=== PATIENT | male | born 1955 | race Caucasian/White ===

== ENCOUNTER → 2017-05-22 | Outpatient (CLI) | payer MEDICARE ==
--- NOTE | 2017-05-23 06:03 | US ---
EXAM DESCRIPTION: Abdomen,Complete CLINICAL HISTORY: HEP C COMPARISON: None TECHNIQUE: Real-time sonographic images of the abdomen are obtained FINDINGS: Pancreas is unremarkable. The right lobe of the liver measures 18.5cm. The liver is diffusely increased in echotexture compatible with hepatic steatosis. No focal hepatic mass is seen. The gallbladder is normally distended and free of abnormal internal echogenicities. No gallbladder wall thickening or pericholecystic fluid is seen. The common bile duct measures six mm in greatest diameter. The right kidney measures 10.9 cm. The left kidney measures 10.9 cm. Both kidneys show normal renal cortical echogenicity. No hydronephrosis is seen. The spleen measures 10.3 cm. Visualized IVC and abdominal aorta are within normal limits. IMPRESSION: Hepatic steatosis. Electronically signed by: Terell Hallman MD 05/23/2017 6:01 AM CDT
== END | disposition home or self-care (01) ==
LOC: US 08:46
PROVIDERS: ATTEND Nurse Practitioner Family
DX: K76.0 Fatty (change of) liver, not elsewhere classified (principal); G89.29 Other chronic pain

== ENCOUNTER → 2018-12-09 | Outpatient (CLI) | payer MEDICARE ==
--- NOTE | 2018-12-09 16:16 | US ---
EXAM DESCRIPTION: Abdomen,Complete: Ultrasound. CLINICAL HISTORY: CHRONIC LIVER DISEASE COMPARISON: None Available. TECHNIQUE: Transabdominal scannin-dimensional and Doppler modes. FINDINGS: Gallbladder: Normal echogenicity and size with no intraluminal stones or sludge. Wall thickness 1 mm. No surrounding fluid. Nontender with transducer pressure. Common bile duct: 5.4 mm normal caliber. Liver: 17.2 cm long axis. Normal echogenicity. Smooth capsule with no ascites. Normal caliber and flow in the portal vein. No intrahepatic biliary dilatation. Pancreas: Normal echogenicity of the included segments duct not seen.. Abdominal aorta: Proximal aorta obscured by intestinal gas. Normal caliber of the mid and distal aorta. IVC: visualized; normal caliber. Spleen normal echogenicity; long axis measurement is 10.2 cm. Right kidney: 10.8 cm long axis. Normal cortical thickness and echogenicity. No hydronephrosis. Left kidney: 10.8 cm long axis. Normal cortical thickness and echogenicity. No hydronephrosis. Proximal aorta obscured by intestinal gas. IMPRESSION: 1. Ultrasound of the abdomen is unremarkable. Liver upper normal limits in size but otherwise negative. 2. No gallstones or dilated ducts. No ascites. Electronically signed by: Mike Maciel MD 12/09/2018 4:13 PM CDT
== END ==
LOC: US 08:07
PROVIDERS: ATTEND Nurse Practitioner Family
DX: K76.9 Liver disease, unspecified (principal); R52 Pain, unspecified; Z86.19 Personal history of other infectious and parasitic diseases; Z86.010 Personal history of colon polyps

== ENCOUNTER 2020-09-15 10:01 | Observation (INO) | payer MEDICARE ==
[2020-09-15] MEDS ORDERED: SODIUM CHLORIDE 0.9% (FLUSH) 10 ML SYG IV PRN ×2 (10:14→14:46)
[2020-09-15] MEDS ORDERED: SODIUM CHLORIDE 0.9% 1000ML 1,000 ML IVS ONE (10:15)
--- NOTE | 2020-09-15 10:21 | ED.PDOC ---
History of Present Illness - General Time Seen by Provider: 09/15/20 10:04 Source: patient - History of Present Illness Initial Comments: 65-year-old PMH COPD who presents with chief complaint of shortness of breath and fever. Reports onset of illness a few days after [place] after being around many family members who have since tested positive for COVID-19. States symptoms have worsened in the past few days. Reports chief complaint of marked dyspnea at rest which worsens with minimal exertion. He reports frequent cough which is productive for colored sputum. He additionally reports fevers for the past couple of weeks with T-max 102 Fahrenheit at home. He also complains of urinary frequency but when he tries to urinate he is having issues and producing dark urine. Additionally reports new onset left-sided flank pain which has been coming and going. Also reports headaches, body aches, burning chest pains only with coughing, poor appetite. Denies abdominal pain, nausea/vomiting/diarrhea, leg swelling. He has not taken any medications at home for his symptoms. Patient reports prior smoking history but quit 25 years ago. He does admit to frequently smoking cannabis. Reports history of COPD but has not used his inhaler recently. Denies any known cardiac issues. PCP is John Jacome. Allergies/Adverse Reactions: Allergies NO KNOWN ALLERGY Allergy (Verified 09/15/20 10:34) Review of Systems - Review of Systems Review of Systems: 09/15/20 10:21 as per HPI All other Systems: Reviewed and Negative Past Medical History (General) - Patient Medical History Hx Congestive Heart Failure: No Hx Diabetes: No Family Medical History - Family History Mother Family History: No Known Physical Exam - Physical Exam General Appearance: Alert, Comfortable, No apparent distress Eye Exam: bilateral normal Ears, Nose, Throat: hearing grossly normal, normal ENT inspection, normal pharynx Neck: non-tender, full range of motion, supple, normal inspection Respiratory: wheezing - expiratory wheezing noted throughout w/o rales/rhonchi, other - slightly increased respiratory effort, RR 25, able to speak in full sentences, some accessory muscle use noted Cardiovascular/Chest: normal peripheral pulses, no edema, no gallop, no JVD, no murmur, tachycardia, irregularly irregular Peripheral Pulses: radial,right: 2+, radial,left: 2+ Gastrointestinal/Abdominal: soft, no organomegaly, abnormal bowel sounds - diminished throughout, tenderness - moderate w/o guarding to LLQ & Left flank region, mild to suprapubic region Back Exam: normal inspection, no vertebral tenderness, CVA tenderness (L) Extremity: normal range of motion, non-tender, normal inspection, no pedal edema, no calf tenderness, normal capillary refill 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 Consider also pneumonia, ACS, arrhythmia, CHF, influenza, strep, UTI, gastroenteritis, electrolyte derangement, PE, other -Patient with noted irregularly irregular tachycardia on arrival, appears consistent with atrial fibrillation. SPO2 98% on room air, blood pressure 170s/110s. -Obtain stat cardiac work-up, rapid Covid/flu/strep testing, UA -Place PIV, 1 L normal saline bolus, prepare for A. fib treatment 09/15/20 11:06 -Patient's heart rate has improved to 100 following the diltiazem 20 mg IV. Blood pressure is improved to 100s/70s. Patient reports feeling much better. He remains stable. SPO2 99% on room air. -Lab results reveal rapid Covid is positive. Flu negative, strep negative. Troponin negative. BNP slightly elevated. D-dimer is also slightly elevated above normal range which I suspect is due to COVID-19 infection. Very low suspicion for PE given normal SPO2 on room air. Will defer CTA imaging at this time as I feel the risk of potential kidney injury outweighs benefit. Remainder of blood work pretty unremarkable. Chest x-ray is consistent with COVID-19 pneumonia. -We will monitor the patient further in the ED. Trial of Duonebs and Decadron 6 mg IV, then reassess pt. Possible admit for A. fib with RVR which is now rate- controlled, COVID-19 pneumonia, and acute on chronic COPD exacerbation. 09/15/20 12:32 -Patient reassessed after DuoNeb's treatment. Reports shortness of breath is slightly better but chest tightness/pain is worsened again. A. fib with RVR has returned, heart rate ranging [id number] currently. I suspect this is likely due to the breathing treatment. Blood pressure is 130s/90s, SPO2 remains normal on room air. Patient continues to have expiratory wheezing throughout but slightly improved from earlier. -Repeating EKG and troponin. We will give another dose of diltiazem 10 mg IV, reassess. Anticipate admission. 09/15/20 13:01 -HR slightly improved, now ranging 110s-130. BP 130s/100s. Will give metoprolol 5 mg IV. Calling hospitalist for admission. 09/15/20 13:12 -HR improved to 115. Spoke with Zohra Heath who accepts pt to her service. She requests to begin oral diltiazem in the ED to help with acute/chronic rate control. Will give 30 mg dose x1. Will defer further COVID treatment and decision for anticoagulation to hospitalist. Josué Fernandez MD Billing #[id number] 09/15/20 10:14 Sodium Chloride 0.9% (Flush) [Saline Flush Syringe] 10 ml IV PRN PRN Pulse Oximetry Assessment DAILY 09/15/20 10:15 EKG STAT UA [URINALYSIS] Stat 09/15/20 10:35 STREP A SCREEN CULTURE Stat 09/15/20 11:36 EKG Assessment ONCE 09/15/20 11:45 EKG STAT 09/15/20 12:15 TROPONIN-I Stat 09/15/20 13:12 ED Intent to Admit Routine 09/16/20 09:00 Pulse Ox Daily Laboratory Results - last 24 hr 09/15/20 09/15/20 09/15/20 10:30 10:30 10:30 WBC 6.9 RBC 4.31 L Hgb 14.7 Hct 42.9 MCV 99.6 H MCH 34.0 H MCHC 34.2 RDW 12.7 Plt Count 198 MPV 7.7 Absolute Neuts (auto) 5.20 Absolute Lymphs (auto) 1.10 Absolute Monos (auto) 0.50 Absolute Eos (auto) 0.00 Absolute Basos (auto) 0.00 Neutrophils % 75.2 Lymphocytes % 16.6 L Monocytes % 7.8 Eosinophils % 0.0 L Basophils % 0.4 PT INR PTT (SP) Fibrinogen D-Dimer, Quantitative Sodium 133 L Potassium 4.3 Chloride 98 L Carbon Dioxide 24 Anion Gap 15.3 BUN 9 Creatinine 0.79 BUN/Creatinine Ratio 11.4 Random Glucose 111 H Serum Osmolality 265.8 L Lactic Acid 1.4 Calcium 8.4 Magnesium Ferritin Total Bilirubin 1.0 AST 29 ALT 22 Alkaline Phosphatase 57 LD Total Troponin I C-Reactive Protein B-Natriuretic Peptide 298.0 H* Serum Total Protein 7.1 Albumin 3.8 Globulin 3.3 Albumin/Globulin Ratio 1.2 TSH Group A Strep Rapid 09/15/20 09/15/20 09/15/20 10:30 10:30 10:30 WBC RBC Hgb Hct MCV MCH MCHC RDW Plt Count MPV Absolute Neuts (auto) Absolute Lymphs (auto) Absolute Monos (auto) Absolute Eos (auto) Absolute Basos (auto) Neutrophils % Lymphocytes % Monocytes % Eosinophils % Basophils % PT INR PTT (SP) Fibrinogen D-Dimer, Quantitative 660.0 H* Sodium Potassium Chloride Carbon Dioxide Anion Gap BUN Creatinine BUN/Creatinine Ratio Random Glucose Serum Osmolality Lactic Acid Calcium Magnesium 1.9 Ferritin Total Bilirubin AST ALT Alkaline Phosphatase LD Total Troponin I < 0.02 C-Reactive Protein B-Natriuretic Peptide Serum Total Protein Albumin Globulin Albumin/Globulin Ratio TSH 3.02 Group A Strep Rapid 09/15/20 09/15/20 09/15/20 10:35 11:18 11:18 WBC RBC Hgb Hct MCV MCH MCHC RDW Plt Count MPV Absolute Neuts (auto) Absolute Lymphs (auto) Absolute Monos (auto) Absolute Eos (auto) Absolute Basos (auto) Neutrophils % Lymphocytes % Monocytes % Eosinophils % Basophils % PT 9.9 INR 1.00 PTT (SP) 27.6 Fibrinogen D-Dimer, Quantitative Sodium Potassium Chloride Carbon Dioxide Anion Gap BUN Creatinine BUN/Creatinine Ratio Random Glucose Serum Osmolality Lactic Acid Calcium Magnesium Ferritin Total Bilirubin AST ALT Alkaline Phosphatase LD Total 145 Troponin I C-Reactive Protein 2.1 H B-Natriuretic Peptide Serum Total Protein Albumin Globulin Albumin/Globulin Ratio TSH Group A Strep Rapid Negative 09/15/20 09/15/20 11:18 11:18 WBC RBC Hgb Hct MCV MCH MCHC RDW Plt Count MPV Absolute Neuts (auto) Absolute Lymphs (auto) Absolute Monos (auto) Absolute Eos (auto) Absolute Basos (auto) Neutrophils % Lymphocytes % Monocytes % Eosinophils % Basophils % PT INR PTT (SP) Fibrinogen 498 H D-Dimer, Quantitative Sodium Potassium Chloride Carbon Dioxide Anion Gap BUN Creatinine BUN/Creatinine Ratio Random Glucose Serum Osmolality Lactic Acid Calcium Magnesium Ferritin 387.5 H Total Bilirubin AST ALT Alkaline Phosphatase LD Total Troponin I C-Reactive Protein B-Natriuretic Peptide Serum Total Protein Albumin Globulin Albumin/Globulin Ratio TSH Group A Strep Rapid - EKG/XRAY/CT EKG: Atrial, Fibrillation - A. fib with RVR, heart rate 140, no ST elevations noted, Q waves noted anteroseptal leads indicative of possible old PR, axis normal, intervals normal, no prior EKG for comparison. XRAY: chest - Bilateral peripheral hazy opacities noted in the mid lung kee which appears consistent with COVID-19 pneumonia per my read Departure - Departure Clinical Impression: Atrial fibrillation with rapid ventricular response, COPD with acute exacerbation, Pneumonia due to COVID-19 virus Time of Disposition: 13:11 Disposition: Admit Patient Condition: Fair Diet: low fat, low cholesterol, low salt diet Referrals: SOMMER JACOME IV, SAILOR [Primary Care Provider] - 1-2 Weeks Decision To Admit - Decistion To Admit Decision to Admit Reason: Admit from ER Decision to Admit Date: 09/15/20 Decision to Admit Time: 13:12
[2020-09-15] MEDS ORDERED: IPRATROPIUM/ALBUTEROL 3 ML VIAL NEB ONE (11:08)
[2020-09-15] MEDS ORDERED: DEXAMETHASONE INJ 10 MG/ML VIAL IV ONE (11:08)
--- NOTE | 2020-09-15 11:13 | RAD ---
EXAM DESCRIPTION: Chest,1 View CLINICAL HISTORY: 65 years Male, cough, dyspnea, fevers COMPARISON: Previous chest x-ray June 07, 2012 TECHNIQUE: AP portable chest. FINDINGS: Heart size is prominent with normal pulmonary vascularity. Density over the upper lung zones thought to be related to pectoralis musculature. No consolidating infiltrate. No pulmonary mass or worrisome nodule. No pneumothorax or pleural effusion. Bones are unremarkable. IMPRESSION: No acute process is identified in the chest. Electronically signed by: Amor Poole MD 09/15/2020 11:11 AM [facility]
[2020-09-15] MEDS ORDERED: METOPROLOL TARTRATE INJ 5 MG/5 ML VIAL IV ONE (13:00)
[2020-09-15] MEDS ORDERED: diltiaZEM HCL TAB 30 MG TAB PO ONE ×2 (13:09→14:45)
[2020-09-15] MEDS ORDERED: NITROGLYCERIN 0.4 MG 25 EA TAB SL PRN (14:46)
[2020-09-15] MEDS ORDERED: ACETAMINOPHEN 325 MG TAB PO PRN (14:46)
[2020-09-15] MEDS ORDERED: IV SET AND CAP CHANGE INJ INJ SCH (15:00)
[2020-09-15] MEDS ORDERED: ALBUTEROL INHALER 64 PUFF/8GM INH PRN (15:46)
[2020-09-15] MEDS: diltiaZEM HCL TAB 30 MG TAB PO SCH ×2 (17:53→23:47)
[2020-09-15] MEDS ORDERED: guaiFENesin ER TAB 600 MG TAB ONE (19:04)
[2020-09-15] MEDS ORDERED: SODIUM CHLORIDE 0.9% (FLUSH) 10 ML SYG ONE (19:04)
[2020-09-15] MEDS ORDERED: ENOXAPARIN SODIUM 40 MG/0.4 ML SYG SUBCU ONE (19:04)
[2020-09-15] MEDS ORDERED: BENZONATATE PERLES 100 MG CAP ONE (19:04)
[2020-09-15] MEDS: ALBUTEROL INHALER 64 PUFF/8GM INH SCH ×2 (19:08→20:52)
[2020-09-15] MEDS ORDERED: TEMAZEPAM 15 MG CAP PO PRN (19:50)
[2020-09-15] MEDS ORDERED: TEMAZEPAM 15 MG CAP ONE (20:47)
[2020-09-15] MEDS: guaiFENesin ER TAB 600 MG TAB PO SCH (21:00)
[2020-09-15] MEDS ORDERED: ENOXAPARIN SODIUM 40 MG/0.4 ML SYG SUBCU SCH (21:00)
[2020-09-15] MEDS: SODIUM CHLORIDE 0.9% (FLUSH) 10 ML SYG IV SCH (21:00)
[2020-09-15] MEDS: BENZONATATE PERLES 100 MG CAP PO SCH (21:00)
[2020-09-16] MEDS ORDERED: PANTOPRAZOLE SODIUM TAB 40 MG PO ONE (05:00)
[2020-09-16] MEDS: diltiaZEM HCL TAB 30 MG TAB PO SCH (05:47)
[2020-09-16] MEDS ORDERED: PANTOPRAZOLE SODIUM IV 40 MG VIAL IV SCH (06:30)
[2020-09-16] MEDS ORDERED: PANTOPRAZOLE SODIUM TAB 40 MG PO SCH (06:30)
[2020-09-16] MEDS: guaiFENesin ER TAB 600 MG TAB PO SCH (08:59)
[2020-09-16] MEDS ORDERED: ASPIRIN TABLET 325 MG TAB PO SCH (09:00)
[2020-09-16] MEDS: BENZONATATE PERLES 100 MG CAP PO SCH ×2 (09:00→15:00)
[2020-09-16] MEDS: SODIUM CHLORIDE 0.9% (FLUSH) 10 ML SYG IV SCH (09:00)
[2020-09-16] MEDS ORDERED: BENZONATATE PERLES 100 MG CAP ONE (11:50)
[2020-09-16 14:15] VITALS: BP 133/85; TEMP 97.4; O2SAT 97
--- NOTE | 2020-09-28 20:26 | SSS ---
SUPERVISING PHYSICIAN: Michael Cabral M.D. DISCHARGE DIAGNOSES: 1. Atrial fibrillation with rapid ventricular response. 2. COVID-19 pneumonitis. 3. Hypertensive crisis in a patient presently on no antihypertensive medications. HISTORY OF PRESENT ILLNESS: This is a 65 year-old male patient who came to the Emergency Room with complaints of fever and shortness of breath. A few days after [place] he tested positive for COVID-19. The symptoms had worsened in the days prior to his admission. He had worsening shortness of breath with cough. He also had fever that was up to 102. He denies any nausea, vomiting or diarrhea. He previously smoked 25 years ago and he does still occasionally smoke cannabis. He has chronic obstructive pulmonary disease but does not use his inhaler. He is presently on no medications other than occasional use of an inhaler. Vital signs show temperature 99, pulse rate that was up to 140 and he was in atrial fibrillation. Blood pressure 170/112, respiratory rate 24, O2 saturation was 98%. CBC was unremarkable. D-dimer was elevated at 660. Sodium was slightly low at 133 with chloride 98, BNP was 298. Troponin was less than 0.02. Urinalysis was unremarkable. Group A Strep was negative. Influenza A and B per PCR were both negative. COVID was positive. Chest x-ray showed no acute process identified in the chest. In the Emergency Room, he was given some IV Cardizem. His heart rate went down to 100. He did have some shortness of breath and was given multiple breathing treatments. His heart rate then went up to the 110s to 130s. He was again given some Diltiazem. His heart rate did come down and then it started to go up again, and he was then given Metoprolol. He was started on some oral Cardizem and he was placed in observation in the hospital. PAST MEDICAL HISTORY: 1. Hypertension. 2. Chronic obstructive pulmonary disease. PAST SURGICAL HISTORY: None. OUTPATIENT MEDICATIONS: None. ALLERGIES: SOCIAL HISTORY: He lives in [place]. John Jacome is his primary care provider. He quit smoking many years ago, but he does still smoke cannabis on occasion. Denies any ETOH or other illicit drug use. REVIEW OF SYSTEMS: Negative except as per History of Present Illness. PHYSICAL EXAMINATION: VITAL SIGNS: Temperature 97.4, heart rate 85, blood pressure 133/85, respiratory rate 20, O2 saturation 97% on room air. GENERAL: This is a 65 year-old disheveled male who is lying in his hospital bed. He is in no acute distress. HEENT: Normocephalic, atraumatic. Pupils are equal and reactive. Oropharynx is clear. NECK: Supple with full range of motion. RESPIRATORY: Essentially clear to auscultation bilaterally. CARDIAC: Regular rate and rhythm. Sinus rhythm on the teletypesetter monitor. GASTROINTESTINAL: Abdomen is soft, nondistended, nontender. Bowel sounds are positive. NEUROLOGIC: Awake, alert and oriented times three. Cranial nerves II-XII are grossly intact as tested. FOLLOWUP LABORATORY: CBC is unremarkable. Electrolytes are unremarkable. Liver enzymes are within normal limits. Echocardiogram shows: 1. Normal LV size and systolic function with estimated ejection fraction of 55 to 60% with no obvious regional wall motion abnormalities. 2. Normal right ventricular size and function. 3. Trace of mitral and tricuspid valve regurgitation. 4. Normal pericardium. HOSPITAL COURSE: The patient was started on Diltiazem and given Lovenox. His heart rate converted to sinus rhythm and he had no further incidences of accelerated rhythm or atrial fibrillation. He will be discharged home today in stable condition. DISCHARGE PLAN: The patient will be discharged home in stable condition. He is to resume his previous diet and increase his activity as tolerated. He is to followup with John Jacome in the next 1 to 2 weeks. He did not have any home medications, so I have given the patient a prescription for Diltiazem, Eliquis and an Albuterol inhaler. He is also to take 1 aspirin daily. He is to return to the hospital or followup with John Jacome for any problems or complications. DISCHARGE MEDICATIONS: 1. Aspirin. 2. Diltiazem. 3. Eliquis. 4. Albuterol. #[id number] [facility]
== END 2020-09-16 16:40 | disposition home or self-care (01) ==
LOC: ER 10:01 → INTOOBSV 13:25 → MS 13:25
PROVIDERS: ADMIT Nurse Practitioner Acute Care; ATTEND Nurse Practitioner Acute Care
DX: I48.91 Unspecified atrial fibrillation (principal); U07.1 COVID-19; J12.82 Pneumonia due to coronavirus disease 2019; I16.9 Hypertensive crisis, unspecified; J44.1 Chronic obstructive pulmonary disease with (acute) exacerbation; I10 Essential (primary) hypertension; I08.1 Rheumatic disorders of both mitral and tricuspid valves; Z79.01 Long term (current) use of anticoagulants; Z79.82 Long term (current) use of aspirin; Z79.899 Other long term (current) drug therapy; Z87.891 Personal history of nicotine dependence
CPT/HCPCS: 96374; 96375; 96376; 96372; J7030; J1650; J1100; A4216 ×2; J7620; 85379; 80053 ×2; 87880; 80061; 36415 ×7; 85384; 81001; 86140; 85025 ×2; 82728; 83615; 83735; 85730; 85610; 87070; 84443; 84484 ×2; 83880; 83605; 71045; 94640; 94762; 99285; 93306; 93005 ×2; G0378; 87502; 87635